=== PATIENT | male | born 1990 | race Caucasian/White ===

== ENCOUNTER 2018-05-19 20:01 | Emergency (ER) | payer MEDICAID ==
[~2018-05-19] VITALS: Ht 167.6 cm; Wt 88.9 kg
[2018-05-19 20:15] VITALS: BP_SYST 152
[2018-05-19] MEDS ORDERED: KETOROLAC TROMETHAMINE 60 MG/2 ML VIAL IM ONE (20:30)
[2018-05-19 21:10] VITALS: BP_SYST 132
== END 2018-05-19 21:10 | disposition home or self-care (01) ==
LOC: SED 20:01
DX: R51 Headache (principal); R03.0 Elevated blood-pressure reading, without diagnosis of hypertension; Z88.0 Allergy status to penicillin
CPT/HCPCS: 99283; J1885

== ENCOUNTER 2018-10-31 11:45 | Emergency (ER) | payer MEDICAID ==
[~2018-10-31] VITALS: Ht 167.6 cm; Wt 90.7 kg
[2018-10-31 11:56] VITALS: BP_SYST 147
--- NOTE | 2018-10-31 12:05 | NUR ---
Patient to ER bed H1 to gown for evaluation. Side rails up.
--- NOTE | 2018-10-31 12:08 | NUR ---
ER at bedside examining patient.
[2018-10-31 12:25] VITALS: BP_SYST 147
[2018-10-31] MEDS ORDERED: NOREPINEPHRINE BITARTRATE 4 MG in NS 246 ML IV ONE (13:30)
== END 2018-10-31 12:25 | disposition home or self-care (01) ==
LOC: SED 11:45
DX: H11.151 Pinguecula, right eye (principal); H11.31 Conjunctival hemorrhage, right eye; Z88.0 Allergy status to penicillin
CPT/HCPCS: 99282